=== PATIENT | female | born 1985 | race Caucasian/White ===

== ENCOUNTER → 2021-01-01 | Outpatient (CLI) | payer OTHER ==
--- NOTE | 2021-01-01 10:56 | MR ---
EXAMINATION TYPE: MR brain and iac wo/w con DATE OF EXAM: 01/01/2021 COMPARISON: None HISTORY: Asymmetrical hearing loss, Rt vestibular weakness per eng TECHNIQUE: Multiplanar, multisequence images of the brain and brainstem, internal auditory canals is performed w ithout and with IV contrast, utilizing 7 mL intravenous Gadavist, small field of view and high-resolu tion images obtained through the internal auditory canals FINDINGS: Diffusion weighted images demonstrate no evidence of a recent infarct or other diffusion ab normality. There is no extra-axial fluid collection or significant white matter signal abnormality. The ventricular system and cisternal spaces are normal in size and appearance. The brain volume is age appropriate. The internal auditory canal show symmetric unremarkable appearance. Semicircular canals, cochlea are symmetric. Midline structures demonstrate normal morphology. The craniocervical junction appears within normal limits. Post contrast images demonstrate no abnormal enhancement. The dural venous sinuses appear pa tent. The visualized sinuses are showing some inflammatory change in the ethmoid air cells, mucosal d isease in the maxillary sinus and the globes are intact. There is inflammatory change present within the mastoid air cells on the left. IMPRESSION: Correlate for mastoiditis.
== END | disposition home or self-care (01) ==
LOC: RADMRIMAIN 08:53
PROVIDERS: ATTEND Otolaryngology
DX: H91.90 Unspecified hearing loss, unspecified ear (principal)
CPT/HCPCS: 70553; A9585

== ENCOUNTER 2022-06-01 22:06 | Emergency (ER) | payer OTHER ==
[2022-06-01 22:21] VITALS: BP 137/81; PULSE 98; RESP 18; TEMP 98.2
[2022-06-01] MEDS ORDERED: methylPREDNISolone SOD SUCCI 125 MG/2 ML VIAL IM ONE (22:34)
[2022-06-01] MEDS ORDERED: CIPROFLOXACIN-DEXAMETH 0.3-0.1% DROPS 7.5 ML BTL RIGHT EAR STA (22:34)
[2022-06-01] MEDS ORDERED: AMOXIC-POT CLAV 875-125MG 1 EACH TAB PO STA (22:34)
[2022-06-01] MEDS ORDERED: AMOXIC-POT CLAV 875MG STARTER PACK 2 TAB BTL PO STA (22:36)
--- NOTE | 2022-06-01 22:42 | ED ---
ENT HPI - General Chief complaint: ENT Stated complaint: Ear Infection Time Seen by Provider: 06/01/22 22:09 Source: patient, RN notes reviewed Mode of arrival: ambulatory Limitations: no limitations - History of Present Illness Initial comments: This is a 36-year-old female who presents to the emergency department for right ear pain. States that this has been present and worsening over the last 5 days. Reports a history of hearing loss and eustachian tube dysfunction, causing recurrent problems. She uses Flonase nasal spray daily and has also been taking ibuprofen without relief. States that she usually requires a course of antibiotics with systemic steroids. Denies any fevers or other upper respiratory symptoms. She does follow with ENT. 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 She previously had blood work done demonstrating a positive NEMESIO and was told that there was suspicion for SLE. Denies any fevers, chills, sore throat, cough, dyspnea, chest pain, palpitations, abdominal pain, nausea, vomiting, diarrhea, back pain, or headaches. MD complaint: ear pain Onset/Timin -: days(s) - Related Data Previous Rx's Medication Instructions Recorded Azithromycin [Zithromax] 250 mg PO DAILY 4 Days #4 tab 06/01/22 predniSONE 50 mg PO DAILY 5 Days #5 tablet 06/01/22 Allergies Allergy/AdvReac Type Severity Reaction Status Date / Time Penicillins Allergy Severe Anaphylaxis Verified 06/01/22 22:52 ciprofloxacin Allergy Rash/Hives Verified 06/01/22 22:52 codeine Allergy Anaphylaxis Verified 06/01/22 22:52 Review of Systems ROS Statement: Those systems with pertinent positive or pertinent negative responses have been documented in the HPI. ROS Other: All systems not noted in ROS Statement are negative. Past Medical History Past Medical History: No Reported History Additional Past Surgical History / Comment(s): JUANITO Smoking Status: Former smoker Past Alcohol Use History: None Reported Past Drug Use History: None Reported General Exam Limitations: no limitations General appearance: alert, in no apparent distress Head exam: Present: atraumatic, normocephalic, normal inspection ENT exam: Present: other (Right serous otitis media. No movement with forced valsalva. Minor TM and canal erythema. ) Respiratory exam: Present: normal lung sounds bilaterally. Absent: respiratory distress, wheezes, rales, rhonchi, stridor Cardiovascular Exam: Present: regular rate, normal rhythm, normal heart sounds. Absent: systolic murmur, diastolic murmur, rubs, gallop, clicks Neurological exam: Present: alert, oriented X3, CN II-XII intact Psychiatric exam: Present: normal affect, normal mood Skin exam: Present: warm, dry, intact, normal color. Absent: rash Course Vital Signs 06/01/22 22:14 Temperature 98.2 F Pulse Rate 98 Respiratory 18 Rate Blood Pressure 137/81 O2 Sat by Pulse 99 Oximetry Medical Decision Making - Medical Decision Making This is a 36-year-old female who presents to the emergency Department for right ear pain. Was pt. sent in by a medical professional or institution? @ -No Did you speak to anyone other than the patient for history? @ -No Did you review nursing and triage notes? @ -Yes, and I agree, it is accurate with regards to the patient's symptoms. Were old charts reviewed? @ -No Differential Diagnosis? @ -Differential Earache: Otitis media, otitis externa, COVID-19, influenza, allergic rhinitis, mastoiditis, myringitis, cerumen impaction, eustachain tube dysfunction, this is not meant to be an all-inclusive list. What testing was considered but not performed? (CT, X-rays, U/S, labs)? Why? @ -None What meds were considered but not given? Why? @ -None Did you discuss the management of the patient with other professionals? @ -No Did you reconcile home meds? @ -No Was smoking cessation discussed for >3mins.? @ -No Was critical care preformed (if so, how long)? @ -No Were there social determinants of health that impacted care today? How? (Homelessness, low income, unemployed, alcoholism, drug addiction, transportation, low edu. Level, literacy, decrease access to med. care, skilled nursing, rehab)? @ -No Was there de-escalation of care discussed even if they declined? (Discuss DNR or withdrawal of care, Hospice)? @ -No What co-morbidities impacted this encounter? (DM, HTN, Smoking, COPD, CAD, Cancer, CVA, Hep., AIDS, mental health diagnosis, sleep apnea, morbid obesity)? @ -Eustachian tube dysfunction Was patient admitted / discharged? @ -Discharged. Physical exam consistent with a serous otitis media. Given the patient's history, and improvement with courses of steroids and antibiotics, will treat her the same way. Prescription for azithromycin and prednisone provided with dosing instructions reviewed. Azithromycin was used to the anaphylactic reaction she has to penicillins. States that she usually gets azithromycin and it is always effective. She was also given Cortisporin eardrops in the emergency department. She is instructed to apply 4 drops to the right ear 4 times daily for 7 days. Advised she also use Tylenol as needed for additional discomfort. Information for the local rheumatology office provided per the patient's request regarding the positive NEMESIO. Undiagnosed new problem with uncertain prognosis? @ -None Drug Therapy requiring intensive monitoring for toxicity (Heparin, Nitro, Insulin, Cardizem)? @ -None Were any procedures done? @ -None Diagnosis/symptom? @ -Serous otitis media Acute, or Chronic, or Acute on Chronic? @ -Acute Uncomplicated (without systemic symptoms) or Complicated (systemic symptoms)? @ -Uncomplicated Side effects of treatment? @ -None Exacerbation, Progression, or Severe Exacerbation] @ -Not applicable Poses a threat to life or bodily function? @ -No Return precautions reviewed in depth, the patient is instructed to return to the emergency department with any new, worsening, or concerning symptoms. Patient verbalized understanding. This case was discussed in detail with the attending ED physician, Dr. Marshall. Presentation, findings, and treatment plan discussed in detail as well. Disposition Clinical Impression: Serous otitis media, Eustachian tube dysfunction, Positive NEMESIO (antinuclear ant ibody) Disposition: HOME SELF-CARE Instructions (If sedation given, give patient instructions): Swimmer's Ear (ED), Earache (ED), Fluid In The Ear (Serous Otitis Media) (ED) Additional Instructions: Return to the emergency department with any new, worsening, or concerning symptoms. Take the antibiotics as prescribed for 4 days. Use the eardrops as 4 drops to the right ear four times daily for 7 days and take the prednisone daily for 5 days. Contact rheumatology as listed below for a follow-up appointment regarding the positive NEMESIO. Follow up with your primary care provider in 1-2 days. Prescriptions: predniSONE 50 mg PO DAILY 5 Days #5 tablet Azithromycin [Zithromax] 250 mg PO DAILY 4 Days #4 tab Is patient prescribed a controlled substance at d/c from ED?: No Referrals: Nonstaff,Physician [Primary Care Provider] - 1-2 days Tram Quinones MD [STAFF PHYSICIAN] - 1-2 days
[2022-06-01] MEDS ORDERED: NEOMYCIN-POLYMYXIN-HC (3.5-10,000-10 MG) OTIC DROPS 10 ML BTL RIGHT EAR STA (22:55)
[2022-06-01] MEDS ORDERED: AZITHROMYCIN 250 MG TAB PO ONE (22:58)
[2022-06-01] MEDS ORDERED: IBUPROFEN 600 MG STARTER PACK 4 TAB BTL PO STA (23:08)
[2022-06-01] MEDS ORDERED: IBUPROFEN 600 MG TAB PO STA (23:08)
== END 2022-06-02 00:43 | disposition home or self-care (01) ==
LOC: EC 22:06
DX: H65.91 Unspecified nonsuppurative otitis media, right ear (principal); H69.93 Unspecified Eustachian tube disorder, bilateral; R76.0 Raised antibody titer; Z87.891 Personal history of nicotine dependence; Z88.0 Allergy status to penicillin; Z88.5 Allergy status to narcotic agent; Z88.6 Allergy status to analgesic agent
CPT/HCPCS: 99283; 96372; J2930

== ENCOUNTER → 2024-04-23 | Outpatient (CLI) | payer OTHER ==
--- NOTE | 2024-04-24 10:55 | MM ---
Reason for Exam: Clinical finding. Baseline mammogram. Patient History: Menarche at age 13. First Full-Term at age 23. Patient has history of breast feeding. Hormonal Contraceptives, from age 18 until age 21. Maternal aunt had breast cancer. Risk Values: Ansley 5 year model risk: 0.4%. NCI Lifetime model risk: 9.1%. Prior Study Comparison: Patient's first Mammogram. Tissue Density: There are scattered areas of fibroglandular density. Findings: Analyzed By CAD. No evidence for mass or distortion. No suspicious calcifications detected. Overall Assessment: Negative, BI-RAD 1 Management: Screening Mammogram of both breasts in 1 year. . Results were given to the patient verbally at the time of exam. Patient should continue monthly self-breast exams. A clinical breast exam by your physician is recommended on an annual basis. This exam should not preclude additional follow-up of suspicious palpable abnormalities. Note on Ansley scores and lifetime risk: 1. A Ansley score greater than 3% is considered moderate risk. If this is the case, consider specialist referral to assess eligibility for a risk reducing agent. 2. If overall lifetime risk for the development of breast cancer is 20% or higher, the patient may qualify for future screening with alternating mammogram and breast MRI. [facility], , 04/24/2024 10:46 AM. Electronically signed and approved by: Marvel Babin M.D. Radiologis
== END | disposition home or self-care (01) ==
LOC: RADMAMWWP 13:03
PROVIDERS: ATTEND Family Medicine
DX: R92.323 Mammographic fibroglandular density, bilateral breasts (principal); N64.4 Mastodynia; Z80.3 Family history of malignant neoplasm of breast
CPT/HCPCS: 77066; G0279; 77062

== ENCOUNTER → 2024-05-20 | Outpatient (CLI) | payer OTHER ==
[2024-05-20 16:58] LABS: Gliadin AB IgA, Deaminated Negative (Negative); Gliadin AB IgA, Unit 0.5 U/mL
[2024-05-20 17:00] LABS: Gliadin AB IgG, Deaminated Negative (Negative); Gliadin AB IgG, Unit <0.4 U/mL
== END | disposition home or self-care (01) ==
LOC: LABWHC1 10:54
PROVIDERS: ATTEND Nurse Practitioner Family
DX: R19.4 Change in bowel habit (principal)
CPT/HCPCS: 36415; 83516

== ENCOUNTER → 2024-08-19 | Outpatient (CLI) | payer OTHER ==
--- NOTE | 2024-08-30 08:30 | CE ---
CARDIAC ELECTROPHYSIOLOGY REPORT STUDY: Three days Holter monitor. INDICATION: Cardiac arrhythmia. FINDINGS: The patient was monitored for 3 days. The baseline rhythm appeared to be sinus mechanism. The average heart rate was 77 beats per minute. Ventricular ectopic events and supraventricular ectopic events were rare in less than 1%. The patient did have 1 episode of atrial tachycardia of 4 beats only. No other arrhythmia noted. CONCLUSION: 1. This is 3-day Holter monitor. 2. The baseline rhythm is sinus mechanism with an average heart rate of 77 beats per minute. 3. The patient did have 1 episode of atrial tachycardia of 4 beats only. 4. No other arrhythmia noted. MMODL / IJN: [id number] /
== END | disposition home or self-care (01) ==
LOC: RADECHMAIN 07:52
PROVIDERS: ATTEND Family Medicine
DX: R00.1 Bradycardia, unspecified (principal); I47.10 Supraventricular tachycardia, unspecified
CPT/HCPCS: 93225

== ENCOUNTER → 2024-08-29 | Outpatient (CLI) | payer OTHER ==
--- NOTE | 2024-08-29 16:09 | XR ---
EXAMINATION TYPE: XR abdomen 1V DATE OF EXAM: 08/29/2024 3:44 PM COMPARISON: None CLINICAL INDICATION: Female, 38 years old with history of R10.84 GENERALIZED ABDOMINAL PAIN; PHH, luba n TECHNIQUE: One radiographic view of the abdomen was obtained. FINDINGS: Small foci of colonic air present. No significant stool burden. No dilated small bowel loops. No suspicious calcifications clearly seen. No evidence for free intraperitoneal air. Lung bases are clear. IMPRESSION: Nonspecific, nonobstructive bowel gas pattern. No appreciable stool. No free air. [facility], Workstation: [facility], 08/29/2024 4:07 PM
== END | disposition home or self-care (01) ==
LOC: RADXRMAIN 15:23
PROVIDERS: ATTEND Internal Medicine Gastroenterology
DX: R10.84 Generalized abdominal pain (principal)
CPT/HCPCS: 74018